=== PATIENT | male | born 1975 | race Two or more races ===

== ENCOUNTER 2018-10-12 08:47 | Inpatient (IN) | payer SELFPAY ==
[~2018-10-12] VITALS: Ht 177.8 cm; Wt 81.8 kg
[~2018-10-12 08:47] MED LIST: FERR18TA2
[2018-10-12] MEDS ORDERED: ONDANSETRON HCL 4 MG/2 ML VIAL IV ONE (09:15)
[2018-10-12] MEDS ORDERED: MORPHINE SULFATE 4 MG/ML SYR/VIAL IV ONE (09:15)
[2018-10-12 09:39] LABS: Basophils # (auto) 0.1 uL; Basophils % (auto) 0.9 % (0.0-2.0); Eosinophils # (auto) 0 uL; Hemoglobin 8.8 g/dL (13.5-17.5); Mean Corpuscular Volume 61.4 fL (80.0-100.0); Neutrophils # (auto) 4.4 uL
[2018-10-12 09:41] LABS: Hematocrit 30.1 % (41.0-53.0); Lymphocytes # (auto) 1.1 uL; Lymphocytes % (auto) 18.7 % (10.0-50.0); Mean Corpuscular Hgb Conc. 29.3 g/dL (32.0-36.0); Monocytes # (auto) 0.5 uL; Monocytes % (auto) 7.5 % (0.0-12.0); Neutrophils % (auto) 72.9 % (37.0-80.0); Platelet Count (auto) 230 10^3/uL (140-450); Red Blood Cells 4.91 10^6/uL (4.5-5.90); White Blood Cell 6.1 10^3/uL (4.4-10.8)
[2018-10-12 10:07] LABS: Albumin 3.9 g/dL (3.4-5.0); Calcium 8.2 mg/dL (8.5-10.1); Potassium 3.2 mmol/L (3.5-5.1)
[2018-10-12 10:10] LABS: BUN/Creatinine Ratio 11.4; Bilirubin, Total 0.8 mg/dL (0.2-1.0); Total Protein 8.6 g/dL (6.4-8.2)
[2018-10-12 10:18] LABS: Magnesium 1.8 mg/dL (1.6-2.6)
[2018-10-12] MEDS ORDERED: ONDANSETRON HCL 4 MG/2 ML VIAL IV PRN (14:45)
[2018-10-12] MEDS ORDERED: POTASSIUM CHL 20 Meq TABLET PO ONE (14:45)
[2018-10-12] MEDS: SODIUM CHLORIDE 0.9% 1,000 ML IV SCH (14:45)
[2018-10-12] MEDS ORDERED: PANTOPRAZOLE 40 MG/10 ML VIAL IV ONE (14:45)
[2018-10-12 14:56] LABS: Urine Bacteria NONE SEEN /hpf (None Seen); Urine Blood Negative /uL (Negative); Urine Mucus FEW (None Seen); Urine Specific Gravity 1.025 (1.001-1.035); Urine WBC 1 /hpf (0 - 3)
--- NOTE | 2018-10-12 16:30 | NUR ---
ASSUMED CARE OF PATIENT PATIENT AWAKE, ALERT, AND ORIENTED X4. RESPIRATIONS EVEN AND UNLABORED. NO S/S OF DISTRESS OR SOB. PATIENT STATES HE IS AT 6/10 PAIN LEVEL IN ABDOMEN. WILL MEDICATE PER EMAR/ M.D ORDERS. ORIENTED PATIENT TO ROOM, UNIT, POLICIES, AND PROCEDURES. DISCUSSED POC WITH PATIENT. PATIENT VERBALIZED UNDERSTANDING. BED IS IN LOWEST POSITION, SIDE RAILS UP X2, AND CALL LIGHT WITHIN REACH. WILL CONTINUE TO MONITOR Q1 HOUR AND PRN.
--- NOTE | 2018-10-12 16:33 | NUR ---
ELEVATED B/P CONTACTED ELYSSA WILKERSON M.D. ON PATIENT'S BP 151/92mmHG HR 90 M.D. SAID HE WOULD REVIEW CHART AND CALL THIS R.N BACK
[2018-10-12] MEDS ORDERED: amLODIPine BESYLATE 5 MG TAB PO ONE (16:45)
[2018-10-12 17:00] VITALS: BP 151/92
--- NOTE | 2018-10-12 18:09 | NUR ---
NO HOME MEDICATIONS PATIENT TAKES NO HOME MEDICATIONS EXCEPT FOR PRN TYLENOL AND MOTRIN
[2018-10-12] MEDS: MORPHINE SULF INJ 2 MG/ML SYRINGE 1ML IV PRN (18:20)
--- NOTE | 2018-10-12 18:53 | NUR ---
END OF SHIFT PATIENT RESTING IN BED. NO S/S OF DISTRESS, SOB, OR PAIN . BED IS IN LOWEST POSITION , SIDE RAILS UP X2, AND CALL LIGHT WITHIN REACH. WILL ENDORSE CARE TO MAIL HANDLERS SUPERVISOR RN
--- NOTE | 2018-10-12 19:36 | NUR ---
RECEIVED PATIENT FROM DAY SHIFT RN. PATIENT RESTING IN BED. NO S/S OF DISTRESS NOTED. C/O PAIN @ 3/10 AFTER PAIN MEDICATION GIVEN EARLIER. PATIENT UNDERSTOOD THE SCHEDULE OF PAIN MANAGEMENT. WILL COME FOR PAIN MEDICATION WHEN THE TIME IS DUE AND PER PATIENT REQUESTED. POC INSTRUCTED AND ENCOURAGED PATIENT TO CALL FOR VENEER SAMPLE MAKER IF NEEDED. BED IN LOWEST POSITION WITH SIDE RAILS UP X 2. CALL PATEL WITHIN REACH. CONTINUE TO MONITOR FOR CHANGES Q1H AND PRN.
[2018-10-12 22:00] VITALS: BP 143/88
--- NOTE | 2018-10-12 22:16 | NUR ---
PATIENT RESTING IN BED. NO S/S OF DISTRESS NOTED. C/O PAIN @ 09/29. WILL CALL FOR PAIN MEDICATION IF HE COULD NOT TOLERATE THE PAIN. CONTINUE CARE.
[2018-10-13] MEDS: SODIUM CHLORIDE 0.9% 1,000 ML IV SCH ×3 (00:51→20:04)
[2018-10-13] MEDS: MORPHINE SULF INJ 2 MG/ML SYRINGE 1ML IV PRN (00:58)
--- NOTE | 2018-10-13 01:15 | NUR ---
PATIENT C/O PAIN @ 10/29. MEDICATED PATIENT ORDERED. CONTINUE CARE.
--- NOTE | 2018-10-13 04:11 | NUR ---
PATIENT SLEEPING. NO S/S OF DISTRESS AND PAIN NOTED. CONTINUE CARE.
[2018-10-13 05:00] VITALS: BP 125/80
[2018-10-13 06:26] LABS: Basophils # (auto) 0.1 uL; Eosinophils # (auto) 0.1 uL; Eosinophils % (auto) 2.3 % (0.0-7.0); Hemoglobin 8.5 g/dL (13.5-17.5); Lymphocytes # (auto) 1.7 uL; Neutrophils # (auto) 2.8 uL; Platelet Count (auto) 192 10^3/uL (140-450); White Blood Cell 5.1 10^3/uL (4.4-10.8)
[2018-10-13 06:31] LABS: Basophils % (auto) 1.3 % (0.0-2.0); Hematocrit 28.6 % (41.0-53.0); Mean Corpuscular Hemoglobin 18.7 pg (28.0-32.0); Mean Corpuscular Hgb Conc. 29.7 g/dL (32.0-36.0); Mean Corpuscular Volume 63.2 fL (80.0-100.0); Monocytes # (auto) 0.5 uL; Monocytes % (auto) 9.3 % (0.0-12.0); Neutrophils % (auto) 54.1 % (37.0-80.0); Nucleated Red Blood Cells % 0.1 %; Red Blood Cells 4.53 10^6/uL (4.5-5.90); Red Cell Distribution Width 19.9 % (11.8-14.3)
[2018-10-13 06:41] LABS: INR 1.01 (0.9-1.15); Partial Thromboplastin Time 22.4 sec (23.78-33.04); Prothrombin Time 10.8 sec (9.27-12.13)
[2018-10-13 06:47] LABS: Albumin 3.2 g/dL (3.4-5.0); Calcium 7.7 mg/dL (8.5-10.1); Potassium 3.4 mmol/L (3.5-5.1)
[2018-10-13 06:50] LABS: BUN/Creatinine Ratio 7.8; Total Protein 7.3 g/dL (6.4-8.2)
--- NOTE | 2018-10-13 08:00 | NUR ---
RECEIVED PATIENT ALERT AND ORIENTED X4, NOT IN DISTRESS, DEEP BREATH AND COUGHING ENCOURAGED, DEMONSTRATED AND VERBALIZED UNDERSTANDING, CLEAR LUNG SOUNDS IN BILATERAL LUNG LOBES, RR=18, SAT=97%, DENIED SOB OR CHEST PAIN, ABDOMEN SOFT WITH ACTIVE BS IN FOUR QUADRANTS, LAST BM=THIS MORNING, C/O ABDOMINAL PAIN L=3-4/10 REPORTED, GENERAL SKIN INTACT WARM TO TOUCH, AMBULATES TO BR AND AROUND TOLERATED WELL, RESTING ON BED, HEAD OF BED ELEVATED, BED ON LOW POSITION, RAILS UP X2, CALL LIGHT ON REACH, PENDING GI CONSULT, WILL CONTINUE MONITORING.
[2018-10-13 08:57] VITALS: BP 156/80
[2018-10-13] MEDS ORDERED: amLODIPine BESYLATE 5 MG TAB PO SCH (10:00)
[2018-10-13] MEDS ORDERED: PANTOPRAZOLE 40 MG/10 ML VIAL IV SCH (10:00)
[2018-10-13] MEDS ORDERED: HYDROcodone-ACET 5/325MG TAB PO PRN (10:45)
[2018-10-13] MEDS ORDERED: POTASSIUM CHL 20 Meq TABLET PO ONE (10:45)
[2018-10-13 13:00] VITALS: BP 157/81
[2018-10-13 17:00] VITALS: BP 153/88
--- NOTE | 2018-10-13 19:04 | NUR ---
ALERT AND ORIENTED, NOT IN DISTRESS, DENIED PAIN, RESTING ON BED, PENDING NPO POST MN, CONSENT FORM ON CHART, REPORT WAS GIVEN TO THE SPECIAL PROJECTS COORDINATOR RN.
--- NOTE | 2018-10-13 19:20 | NUR ---
RECEIVED PATIENT FROM DAY SHIFT RN. PATIENT RESTING IN BED. NO S/S OF DISTRESS NOTED. C/O PAIN @ 12/29. WILL COME FOR PAIN MEDICATION LATER. POC INSTRUCTED AND ENCOURAGED PATIENT TO CALL FOR MOTOR INSPECTION MECHANIC IF NEEDED. BED IN LOWEST POSITION WITH SIDE RAILS UP X 2. CALL PATEL WITHIN REACH. CONTINUE TO MONITOR FOR CHANGES Q1H AND PRN.
--- NOTE | 2018-10-13 21:20 | NUR ---
REINFORCED PATIENT NPO AFTER MIDNIGHT FOR PROCEDURE TOMORROW. PATIENT VERBALIZED UNDERSTANDING. CONTINUE CARE.
[2018-10-13 21:30] VITALS: BP 154/90
[2018-10-13] MEDS: PANTOPRAZOLE 40 MG TAB PO SCH (21:44)
--- NOTE | 2018-10-14 00:41 | NUR ---
REINFORCED NPO FROM NOW ON. PATIENT VERBALIZED UNDERSTANDING. WATER AND FOOD TOOK AWAY FROM PATIENT. CONTINUE TO MONITOR.
--- NOTE | 2018-10-14 03:03 | NUR ---
PATIENT SLEEPING. NO S/S OF DISTRESS AND PAIN NOTED. CONTINUE CARE.
[2018-10-14 05:00] VITALS: BP 136/96
[2018-10-14] MEDS: SODIUM CHLORIDE 0.9% 1,000 ML IV SCH (05:21)
[2018-10-14 07:25] LABS: Basophils # (auto) 0 uL; Eosinophils # (auto) 0.2 uL; Hemoglobin 8.5 g/dL (13.5-17.5); Monocytes # (auto) 0.4 uL; Monocytes % (auto) 9.2 % (0.0-12.0); Neutrophils # (auto) 2.8 uL; Nucleated Red Blood Cells % 0.1 %; Red Blood Cells 4.55 10^6/uL (4.5-5.90); White Blood Cell 4.4 10^3/uL (4.4-10.8)
[2018-10-14 07:27] LABS: Basophils % (auto) 0.9 % (0.0-2.0); Eosinophils % (auto) 3.6 % (0.0-7.0); Hematocrit 28.4 % (41.0-53.0); Lymphocytes % (auto) 22.1 % (10.0-50.0); Mean Corpuscular Hemoglobin 18.6 pg (28.0-32.0); Mean Corpuscular Hgb Conc. 29.9 g/dL (32.0-36.0); Mean Corpuscular Volume 62.4 fL (80.0-100.0); Neutrophils % (auto) 64.2 % (37.0-80.0); Platelet Count (auto) 203 10^3/uL (140-450); Red Cell Distribution Width 19.9 % (11.8-14.3)
--- NOTE | 2018-10-14 07:30 | NUR ---
Opening Shift Note Assumed care of patient, awake, alert and oriented x4. No S/S of distress. Pt states he does not have any SOB or pain. Pt IV flushed with NS and patent. Instructed pt on POC and to call for assist PRN, will continue to monitor for changes Q1hr and PRN.
[2018-10-14 07:40] LABS: Albumin 3.2 g/dL (3.4-5.0); Calcium 7.9 mg/dL (8.5-10.1); Potassium 3.4 mmol/L (3.5-5.1)
[2018-10-14 07:43] LABS: Bilirubin, Total 0.9 mg/dL (0.2-1.0); Total Protein 7.3 g/dL (6.4-8.2)
[2018-10-14] MEDS ORDERED: NALOXONE HCL 0.4 MG/ML VIAL ONE (08:27)
[2018-10-14] MEDS ORDERED: diphenhdrAMINE HCL 50 MG/1 ML VL ONE (08:27)
[2018-10-14] MEDS ORDERED: LIDOCAINE VISCOUS 2% 15ML UD ONE (08:27)
[2018-10-14] MEDS ORDERED: FLUMAZENIL 0.1 MG/ML INJ 10ML MDV IV ONE (08:27)
[2018-10-14] MEDS ORDERED: SODIUM CHLORIDE LOCK 10 ML ONE (08:27)
--- NOTE | 2018-10-14 08:45 | NUR ---
TAKEN TO EGD PT TAKEN TO PRE-OP FOR EGD. PT TRANSFERRED VIA WHEEL CHAIR. PT TOLERATED WELL. REPORT GIVEN TO ASHLEE IN PRE-OP. NO S/S OF DISTRESS NOTED.
[2018-10-14] MEDS: MIDAZOLAM HCL 5 MG/ML-1ML VIAL ONE ×2 (08:58→09:01)
[2018-10-14] MEDS: fentaNYL CITRATE 100 MCG/2 ML VL ONE ×2 (08:58→09:01)
[2018-10-14 09:00] VITALS: BP 138/69
[2018-10-14] MEDS: PANTOPRAZOLE 40 MG TAB PO SCH (09:38)
[2018-10-14] MEDS ORDERED: amLODIPine BESYLATE 5 MG TAB PO SCH (10:00)
[2018-10-14] MEDS ORDERED: POTASSIUM CHL 20 Meq TABLET PO ONE (12:00)
[2018-10-14] MEDS ORDERED: SODIUM CHLORIDE 0.9% 1,000 ML IV SCH (12:00)
[2018-10-14 13:00] VITALS: BP 151/71
[2018-10-14 13:05] VITALS: BP 141/81
--- NOTE | 2018-10-14 13:40 | NUR ---
Discharge instructions given as ordered. Encourage to follow up with Health clinic as instructed, pt given coupon to urgent care and information on care with no insurance. All questions and concerns addressed. Patient verbalized understanding. Medication reconciliation form completed and copy given to patient. IV removed with catheter intact, pressure dressing applied. Patient refused wheelchair and walked out with spouse and with all personal belongings. No distress noted at time of departure.
== END 2018-10-14 13:40 | disposition home or self-care (01) | DRG 812 ==
LOC: ER 08:51 → OVERFLOW 14:50 → EAST 16:22
PROVIDERS: ADMIT Internal Medicine; ATTEND Internal Medicine
PROC: 0DB68ZX Excision of Stomach, Via Natural or Artificial Opening Endoscopic, Diagnostic (ICD-10-PCS; principal; 2018-10-14 08:56)
DX: D50.9 Iron deficiency anemia, unspecified (principal); K50.911 Crohn's disease, unspecified, with rectal bleeding; F10.10 Alcohol abuse, uncomplicated; I10 Essential (primary) hypertension; K29.70 Gastritis, unspecified, without bleeding; K40.90 Unilateral inguinal hernia, without obstruction or gangrene, not specified as recurrent; K44.9 Diaphragmatic hernia without obstruction or gangrene; K76.0 Fatty (change of) liver, not elsewhere classified; Z79.899 Other long term (current) drug therapy
CPT/HCPCS: 36415; 74176; 76705; 80053; 81001; 83690; 83735; 85025; 85610; 85652; 85730; 93005; 94761; 96374; 96375; C9113; G0378; J2250; J2405

== ENCOUNTER 2021-05-26 15:32 | Emergency (ER) | payer SELFPAY ==
[~2021-05-26] VITALS: Ht 177.8 cm; Wt 78.0 kg
[2021-05-26 15:35] VITALS: BP 129/90
== END 2021-05-26 22:44 | disposition left against medical advice (07) ==
LOC: ER 15:32
DX: S61.411A Laceration without foreign body of right hand, initial encounter (principal); Z53.21 Procedure and treatment not carried out due to patient leaving prior to being seen by health care provider; X58.XXXA Exposure to other specified factors, initial encounter; Y93.89 Activity, other specified; Y92.89 Other specified places as the place of occurrence of the external cause; Y99.8 Other external cause status
CPT/HCPCS: 73130

== ENCOUNTER 2024-06-13 01:55 | Emergency (ER) | payer MEDICAID ==
[~2024-06-13] VITALS: Ht 175.3 cm; Wt 80.0 kg
[2024-06-13] MEDS: LIDOCAINE 1% HCL (LOCAL ANESTH.) INJ 20ML MDV ID ONE (03:45)
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
[2024-06-13 04:18] LABS: Basophils # (auto) 0 10 ^3/uL (0-0.2); Basophils % (auto) 0.6 % (0.0-2.0); Eosinophils # (auto) 0 10 ^3/uL (0-0.8); Eosinophils % (auto) 0.6 % (0.0-7.0); Hematocrit 49.8 % (41.0-53.0); Hemoglobin 16.9 g/dL (13.5-17.5); Lymphocytes # (auto) 2.1 10 ^3/uL (0.4-5.4); Lymphocytes % (auto) 31.3 % (10.0-50.0); Mean Corpuscular Hemoglobin 31.6 pg (28.0-32.0); Mean Corpuscular Volume 93.2 fL (80.0-100.0); Monocytes # (auto) 0.5 10 ^3/uL (0-1.3); Neutrophils % (auto) 59.5 % (37.0-80.0); Nucleated Red Blood Cells % 0.3 %; Platelet Count (auto) 321 10^3/uL (140-450); Red Blood Cells 5.35 10^6/uL (4.5-5.90); Red Cell Distribution Width 15.8 % (11.8-14.3); White Blood Cell 6.7 10^3/uL (4.4-10.8)
[2024-06-13 04:30] LABS: Potassium 3.7 mmol/L (3.5-5.1); Sodium 141 mmol/L (136-145)
[2024-06-13 04:31] LABS: Anion Gap 12 (5-15); Calcium 9.3 mg/dL (8.7-10.4); Carbon Dioxide 21 mmol/L (20-31)
[2024-06-13 04:36] LABS: BUN/Creatinine Ratio 8.9 (10.0-20.0); Blood Alcohol 201.8 mg/dL (<10)
[2024-06-13 04:50] LABS: Blood Urea Nitrogen 7 mg/dL (9-23); Chloride 108 mmol/L (98-107); Glucose 112 mg/dL (74-106)
[2024-06-13 04:52] VITALS: PULSE 94; RESP 16; O2SAT 100
[2024-06-13 05:01] LABS: Acetaminophen < 2.0 UG/ML (10.0-20.0); Salicylate < 3.0 mg/dL (-30)
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
[2024-06-13 08:00] VITALS: PULSE 93; RESP 18; O2SAT 98
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
[2024-06-13] MEDS: OLANZapine 5 MG TAB PO SCH (10:01)
[2024-06-13] MEDS: LORazepam 0.5 MG TAB PO SCH (10:07)
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
[2024-06-13] MEDS: ACETAMINOPHEN 325 MG TAB PO ONE (20:37)
[2024-06-14 08:00] VITALS: PULSE 87; RESP 15; O2SAT 99
--- NOTE | 2024-06-14 08:49 | ECG ---
[facility] Test Date: 2024-06-14 Test Time: 08:48:11 Pat Name: YESENIA SAM Department: er Room: Gender: Systems Qa Analyst: mattie : 1975 Requested By: JANIS PRITCHARD Order Number: [id number] Reading MD: Zain Disla Measurements Intervals Bryan Rate: 90 P: 52 WY: 196 QRS: 86 QRSD: 97 T: 0 QT: 381 QTc: 467 Interpretive Statements Sinus rhythm Baseline wander in lead(s) V1 Electronically Signed On 06-14-2024 13:13:16 PST by Zain Disla Please click the below link to view image of tracing.
[2024-06-14] MEDS: OLANZapine 5 MG TAB PO SCH (09:55)
[2024-06-14 11:48] VITALS: TEMP 98.2
[2024-06-14 12:00] VITALS: BP 119/83; PULSE 93; RESP 16; O2SAT 98
[2024-06-14] MEDS: LORazepam 0.5 MG TAB PO SCH (12:00)
== END 2024-06-13 12:20 | disposition short-term general hospital (02) ==
LOC: ER 01:55 → EDBD 01:55 → ER 12:20
DX: S01.81XA Laceration without foreign body of other part of head, initial encounter (principal); F31.9 Bipolar disorder, unspecified; F12.90 Cannabis use, unspecified, uncomplicated; T43.222A Poisoning by selective serotonin reuptake inhibitors, intentional self-harm, initial encounter; Y08.89XA Assault by other specified means, initial encounter; Y93.89 Activity, other specified; Y92.89 Other specified places as the place of occurrence of the external cause; Y99.8 Other external cause status
CPT/HCPCS: 36415; 70450; 80048; 80320; 80329; 85025